=== PATIENT | male | born 1980 | race African-American/Black ===

== ENCOUNTER 2017-01-16 10:18 | Emergency (ER) | payer OTHER ==
[~2017-01-16] VITALS: Ht 182.9 cm; Wt 83.1 kg
[2017-01-16 10:29] VITALS: BP 118/73
--- NOTE | 2017-01-16 11:59 | NUR ---
Pt taken to bed 7.
--- NOTE | 2017-01-16 12:15 | NUR ---
36/M c/o bilateral lower leg pain x2 weeks. Pt denies any injury or trauma. Ambulatory with steady gait. No discoloration noted. VSS.
--- NOTE | 2017-01-16 12:28 | NUR ---
Patient being evaluated by Dr. Galindo at bedside.
--- NOTE | 2017-01-16 12:47 | NUR ---
Ultrasound at bedside.
--- NOTE | 2017-01-16 14:20 | NUR ---
Dr. Garner re-evaluating patient.
[2017-01-16 14:32] VITALS: BP 120/75
--- NOTE | 2017-01-16 14:34 | NUR ---
Patient discharged with v/s stable. Written and verbal after care instructions given and explained. Patient verbalized understanding. Ambulatory with steady gait. All questions addressed prior to discharge. Advised to follow up with PMD.
== END 2017-01-16 14:34 | disposition home or self-care (01) ==
LOC: MED 10:18
DX: M79.605 Pain in left leg (principal); M79.604 Pain in right leg
CPT/HCPCS: 93970; 99284; Q0092